=== PATIENT | female | born 1945 | race Caucasian/White ===

== ENCOUNTER 2016-09-05 11:58 | Emergency (ER) | payer MEDICARE, OTHER ==
[2016-09-05 12:57] VITALS: BP 119/68
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
[2016-09-05] MEDS ORDERED: Tetan/Diph/Pertus SYR(Tdap)* 0.5 ML SYR(BOOSTRIX) use SYR IM ONE (13:45)
== END 2016-09-05 14:00 | disposition home or self-care (01) ==
LOC: UCCORT 11:58
DX: J20.9 Acute bronchitis, unspecified (principal); J32.9 Chronic sinusitis, unspecified; W27.2XXA Contact with scissors, initial encounter; S61.032A Puncture wound without foreign body of left thumb without damage to nail, initial encounter; Y93.9 Activity, unspecified; Y92.9 Unspecified place or not applicable; Z23 Encounter for immunization; E78.5 Hyperlipidemia, unspecified; Z79.82 Long term (current) use of aspirin
CPT/HCPCS: 90471; 90715; 99212; G0463

== ENCOUNTER 2017-01-08 09:26 | Emergency (ER) | payer MEDICARE, OTHER ==
--- NOTE | 2017-01-08 09:47 | UC ---
Complaint Female HPI - HPI Summary HPI Summary: dysuria and frequency starting yesterday. - History Of Current Complaint Stated Complaint: URINARY Time Seen by Provider: 01/08/17 09:34 Hx Obtained From: Patient ?: No Onset/Duration: Gradual Onset, Lasting Hours Timing: Constant Severity Initially: Mild Severity Currently: Moderate Character: Burning Aggravating Factor(s): Urination Alleviating Factor(s): Nothing Associated Signs And Symptoms: Negative: Fever, Back Pain, Vaginal Bleeding/ Discharge, Vaginal Discharge, Nausea, Vomiting(# Of Episodes =), Genital Swelling, Genital Blisters - Allergies/Home Medications Allergies/Adverse Reactions: Allergies Allergy/AdvReac Type Severity Reaction Status Date / Time No Known Allergies Allergy Verified 09/05/16 12:57 PMH/Surg Hx/FS Hx/Imm Hx Previously Healthy: No - diverticulitis. last uti 3 years ago. Other History Of: Anticoagulant Therapy - Baby aspirin daily. Negative For: HIV, Hepatitis B, Hepatitis C - Surgical History Surgical History: Yes Surgery Procedure, Year, and Place: 2 c-sections, lap laila, left foot surgery - Family History Known Family History: Positive: Cardiac Disease, Hypertension - Social History Lives: With Family Alcohol Use: None Substance Use Type: None Smoking Status (MU): Never Smoked Tobacco Review of Systems Genitourinary: Dysuria, Frequency, Urgency All Other Systems Reviewed And Are Negative: Yes Physical Exam Triage Information Reviewed: Yes Appearance: Well-Appearing, No Pain Distress, Well-Nourished Vital Signs Reviewed: Yes Eye Exam: Normal ENT Exam: Normal Neck exam: Normal Respiratory Exam: Normal Cardiovascular Exam: Normal Abdominal Exam: Normal Abdomen Description: Positive: No Organomegaly, Soft. Negative: CVA Tenderness (R), CVA Tenderness (L), Distended, Guarding Musculoskeletal Exam: Normal Neurological Exam: Normal Psychological Exam: Normal Skin Exam: Normal Complaint Female Dx - Course Course Of Treatment: uti. she agrees to return for any worsening. - Differential Dx/Diagnosis Differential Diagnosis/HQI/PQRI: Cervicitis, Renal Colic, Retained Foreign Body Provider Diagnoses: uti Discharge - Discharge Plan Condition: Good Disposition: HOME Prescriptions: Nitrofurantoin Monohyd Macro [Macrobid] 100 mg PO BID #20 cap Phenazopyridine 200 mg (NF) [Pyridium 200 MG tab *] 200 mg PO TID #6 tab Patient Education Materials: Urinary Tract Infection in Women (ED) Referrals: Angelito COLLIER,Lien [Primary Care Provider] - If Needed
[2017-01-08 09:58] VITALS: BP 117/66
== END 2017-01-08 09:59 | disposition home or self-care (01) ==
LOC: UCCORT 09:26
DX: N39.0 Urinary tract infection, site not specified (principal)
CPT/HCPCS: 81003; 87077; 87086; 87186; 99212; G0463

== ENCOUNTER 2023-01-22 20:49 | Inpatient (IN) ==
[2023-01-22] MEDS ORDERED: Propofol 10 MG/ML 20 ML BTL IV PUSH ONE (21:29)
[2023-01-22] MEDS ORDERED: Ondansetron 4 mg VIAL 2 MG/ML 2 ml VIAL IV ONE (22:36)
[2023-01-22] MEDS ORDERED: Ondansetron 4 mg VIAL 2 MG/ML 2 ml VIAL IV PRN (23:08)
[2023-01-22] MEDS ORDERED: Fluticasone NASAL SPRAY 50MCG 16 gm SPRAY BTL INTRANASAL PRN (23:46)
[2023-01-22] MEDS ORDERED: Albuterol HFA INHALER 8 gm MDI INH PRN (23:46)
[2023-01-23 05:01] LABS: ABS Eosinophils 0.1 10^3/uL (0.0-0.5); ABS Lymphocytes 0.8 10^3/uL (1.0-4.8); ABS Monocytes 0.3 10^3/uL (0.0-0.9); ABS Neutrophils 4.8 10^3/uL (1.5-7.6); ABS Nucleated RBC 0.01 10^3/ul; Hematocrit 28.7 % (35-45); Hemoglobin 10.2 g/dL (11.5-14.3); Lymphocyte % 12.9 %; Mean Corpuscular Hemoglobin 32.1 pg (27-33); Mean Corpuscular Hgb Conc 35.6 g/dL (31-36); Mean Corpuscular Volume 90.3 fL (80-97); Mean Platelet Volume 6.8 fL (7.5-11.2); Nucleated Red Blood Cells % 0.2 /100 WBC (0.0-0.4); Platelet Count 312 10^3/uL (150-450); Red Blood Count 3.17 10^6/uL (3.63-4.92); Red Cell Distribution Width 13.6 % (12-17); White Blood Count 5.9 10^3/uL (3.8-11.8)
[2023-01-23 05:05] LABS: INR 1.18 (0.83-1.13)
[2023-01-23 05:10] LABS: Calcium 8.2 mg/dL (8.6-10.3); Potassium 3.8 mmol/L (3.5-5.0)
[2023-01-23 05:15] LABS: Creatinine, Serum 0.55 mg/dL (0.51-0.95); eGFR CKD-EPI 94.9 (>60)
[2023-01-23] MEDS ORDERED: Dexamethasone IV 4 MG/ML VIAL 1 ml VIAL ONE (08:07)
[2023-01-23] MEDS ORDERED: Glycopyrrolate IV 0.2 MG/ML 1 ML VIAL ONE (08:07)
[2023-01-23] MEDS ORDERED: Propofol 10 MG/ML 20 ML BTL ONE ×2 (08:07)
[2023-01-23] MEDS ORDERED: fentaNYL 100 mcg/2 ml 50 MCG/ML VIAL ONE ×2 (08:07)
[2023-01-23] MEDS ORDERED: Midazolam 2 mg/2 ml VIAL 1 mg/ml 2 ml VIAL (2 mg) ONE (08:07)
[2023-01-23] MEDS ORDERED: Ondansetron 4 mg VIAL 2 MG/ML 2 ml VIAL ONE (08:07)
[2023-01-23] MEDS ORDERED: HYDROmorphone 1 MG/1 ML SYRINGE IV PRN (09:33)
[2023-01-23] MEDS ORDERED: Ondansetron 4 mg VIAL 2 MG/ML 2 ml VIAL IV PRN (09:33)
[2023-01-23] MEDS ORDERED: Naloxone 0.4 mg VIAL 0.4 mg/ml 1 ml VIAL IV PRN (09:33)
[2023-01-23] MEDS: Cholecalciferol (VIT D3) 1,000 unit TAB PO SCH ×3 (10:44→21:43)
[2023-01-23] MEDS: Enoxaparin 40 MG/0.4 ML SYR SUBCUT SCH (17:44)
[2023-01-24 06:14] LABS: ABS Eosinophils 0.1 10^3/uL (0.0-0.5); ABS Lymphocytes 0.6 10^3/uL (1.0-4.8); ABS Monocytes 0.3 10^3/uL (0.0-0.9); ABS Neutrophils 4.1 10^3/uL (1.5-7.6); Eosinophil % 1.5 %; Hematocrit 23.3 % (35-45); Hemoglobin 8.2 g/dL (11.5-14.3); Lymphocyte % 11.2 %; Mean Corpuscular Hemoglobin 31.8 pg (27-33); Mean Corpuscular Hgb Conc 35.3 g/dL (31-36); Mean Platelet Volume 6.8 fL (7.5-11.2); Platelet Count 305 10^3/uL (150-450); Red Blood Count 2.59 10^6/uL (3.63-4.92); Red Cell Distribution Width 13.9 % (12-17); White Blood Count 5.1 10^3/uL (3.8-11.8)
[2023-01-24] MEDS: Cholecalciferol (VIT D3) 1,000 unit TAB PO SCH ×3 (08:25→21:15)
[2023-01-24] MEDS ORDERED: NS 0.9% 1000 ml BAG 1,000 ML IV SCH (13:30)
[2023-01-24 14:25] LABS: ABS Eosinophils 0.1 10^3/uL (0.0-0.5); ABS Lymphocytes 0.7 10^3/uL (1.0-4.8); ABS Monocytes 0.4 10^3/uL (0.0-0.9); ABS Neutrophils 4.6 10^3/uL (1.5-7.6); Hemoglobin 9.1 g/dL (11.5-14.3); Lymphocyte % 11.7 %; Mean Corpuscular Hemoglobin 31.9 pg (27-33); Mean Corpuscular Hgb Conc 35.2 g/dL (31-36); Mean Corpuscular Volume 90.7 fL (80-97); Mean Platelet Volume 7.1 fL (7.5-11.2); Nucleated Red Blood Cells % 0.1 /100 WBC (0.0-0.4); Platelet Count 365 10^3/uL (150-450); Red Blood Count 2.87 10^6/uL (3.63-4.92); Red Cell Distribution Width 13.9 % (12-17); White Blood Count 5.8 10^3/uL (3.8-11.8)
[2023-01-24] MEDS: Enoxaparin 40 MG/0.4 ML SYR SUBCUT SCH (17:43)
[2023-01-25] MEDS: fentaNYL 100 mcg/2 ml 50 MCG/ML VIAL IV SLOW PU PRN ×2 (01:55→09:05)
[2023-01-25 06:56] LABS: ABS Lymphocytes 0.7 10^3/uL (1.0-4.8); ABS Monocytes 0.4 10^3/uL (0.0-0.9); ABS Neutrophils 6.3 10^3/uL (1.5-7.6); Eosinophil % 0.5 %; Hematocrit 21.2 % (35-45); Hemoglobin 7.4 g/dL (11.5-14.3); Mean Corpuscular Hemoglobin 31.5 pg (27-33); Mean Corpuscular Hgb Conc 34.9 g/dL (31-36); Mean Corpuscular Volume 90.3 fL (80-97); Mean Platelet Volume 7.2 fL (7.5-11.2); Platelet Count 315 10^3/uL (150-450); Red Blood Count 2.35 10^6/uL (3.63-4.92); Red Cell Distribution Width 13.9 % (12-17); White Blood Count 7.4 10^3/uL (3.8-11.8)
[2023-01-25] MEDS: NS 0.9% 1000 ml BAG 1,000 ML IV SCH (10:02)
[2023-01-25] MEDS: Acetaminophen IV 1 GM/100ML 1,000 MG/100 ML BAG IV SCH ×2 (10:08→18:02)
[2023-01-25] MEDS: Cholecalciferol (VIT D3) 1,000 unit TAB PO SCH ×3 (10:11→21:30)
[2023-01-25 12:11] LABS: Hematocrit 21.3 % (35-45); Hemoglobin 7.4 g/dL (11.5-14.3)
[2023-01-25 12:23] LABS: Calcium 7.9 mg/dL (8.6-10.3); Potassium 3.7 mmol/L (3.5-5.0)
[2023-01-25 12:28] LABS: Creatinine, Serum 0.38 mg/dL (0.51-0.95); eGFR CKD-EPI 103.8 (>60)
[2023-01-25] MEDS ORDERED: Enoxaparin 40 MG/0.4 ML SYR SUBCUT SCH (16:00)
[2023-01-25] MEDS: Morphine 2 MG/ML SYRINGE IV PRN (19:00)
[2023-01-26] MEDS: NS 0.9% 1000 ml BAG 1,000 ML IV SCH ×2 (02:41→15:37)
[2023-01-26] MEDS: Morphine 2 MG/ML SYRINGE IV PRN ×3 (02:43→20:39)
[2023-01-26] MEDS: Acetaminophen IV 1 GM/100ML 1,000 MG/100 ML BAG IV SCH ×3 (03:02→18:43)
[2023-01-26 07:00] LABS: ABS Eosinophils 0.1 10^3/uL (0.0-0.5); ABS Lymphocytes 0.6 10^3/uL (1.0-4.8); ABS Monocytes 0.4 10^3/uL (0.0-0.9); ABS Neutrophils 4.4 10^3/uL (1.5-7.6); Eosinophil % 1.1 %; Hematocrit 19.6 % (35-45); Hemoglobin 6.9 g/dL (11.5-14.3); Lymphocyte % 10.3 %; Mean Corpuscular Hemoglobin 32.2 pg (27-33); Mean Corpuscular Hgb Conc 35.3 g/dL (31-36); Mean Corpuscular Volume 91.2 fL (80-97); Mean Platelet Volume 6.8 fL (7.5-11.2); Platelet Count 299 10^3/uL (150-450); Red Blood Count 2.15 10^6/uL (3.63-4.92); Red Cell Distribution Width 14.6 % (12-17); White Blood Count 5.5 10^3/uL (3.8-11.8)
[2023-01-26 07:19] LABS: Calcium 7.6 mg/dL (8.6-10.3); Creatinine, Serum 0.33 mg/dL (0.51-0.95); Potassium 3.6 mmol/L (3.5-5.0); eGFR CKD-EPI 107.4 (>60)
[2023-01-26] MEDS ORDERED: Iohexol 350 (CONTRAST) 500 ML MDV IV ONE (08:40)
[2023-01-26] MEDS: Cholecalciferol (VIT D3) 1,000 unit TAB PO SCH ×3 (09:09→20:41)
[2023-01-26 09:24] LABS: Magnesium 1.8 mg/dL (1.9-2.7)
[2023-01-26] MEDS ORDERED: Magnesium Sulfate 2 gm BAG 2 GM/50 ML BAG IVPB ONE (12:16)
[2023-01-26 12:35] LABS: High Sensitivity Troponin 1 Hr 12 pg/mL (<15)
[2023-01-26 15:23] LABS: Hematocrit 22.7 % (35-45); Hemoglobin 8.1 g/dL (11.5-14.3)
[2023-01-26] MEDS ORDERED: Enoxaparin 40 MG/0.4 ML SYR SUBCUT SCH (16:00)
[2023-01-27] MEDS: NS 0.9% 1000 ml BAG 1,000 ML IV SCH ×2 (01:52→21:51)
[2023-01-27] MEDS: Acetaminophen IV 1 GM/100ML 1,000 MG/100 ML BAG IV SCH ×4 (01:55→22:28)
[2023-01-27] MEDS: Morphine 2 MG/ML SYRINGE IV PRN ×2 (04:38→08:39)
[2023-01-27 07:11] LABS: ABS Eosinophils 0.1 10^3/uL (0.0-0.5); ABS Lymphocytes 0.7 10^3/uL (1.0-4.8); ABS Monocytes 0.4 10^3/uL (0.0-0.9); ABS Neutrophils 4.8 10^3/uL (1.5-7.6); ABS Nucleated RBC 0.01 10^3/ul; Hematocrit 22.5 % (35-45); Hemoglobin 8.1 g/dL (11.5-14.3); Lymphocyte % 12.1 %; Mean Corpuscular Hemoglobin 32.2 pg (27-33); Mean Corpuscular Volume 89.4 fL (80-97); Mean Platelet Volume 6.7 fL (7.5-11.2); Nucleated Red Blood Cells % 0.1 %/100WBC (0.0-0.8); Platelet Count 329 10^3/uL (150-450); Red Blood Count 2.52 10^6/uL (3.63-4.92); Red Cell Distribution Width 14.4 % (12-17); White Blood Count 6.1 10^3/uL (3.8-11.8)
[2023-01-27 07:46] LABS: Calcium 7.8 mg/dL (8.6-10.3); Creatinine, Serum 0.31 mg/dL (0.51-0.95); Potassium 3.6 mmol/L (3.5-5.0)
[2023-01-27] MEDS: Cholecalciferol (VIT D3) 1,000 unit TAB PO SCH ×3 (09:02→22:35)
[2023-01-27] MEDS ORDERED: NS 0.9% 500 ml BAG 500 ML IV ONE (10:31)
[2023-01-27] MEDS: KCL 20 MEQ/100 ML IVPREMIX 20 MEQ/100 ML BAG IV SCH ×2 (11:54→22:03)
[2023-01-27 12:31] LABS: Hematocrit 25.2 % (35-45); Hemoglobin 8.9 g/dL (11.5-14.3)
[2023-01-27] MEDS ORDERED: Lidocaine 2% PF 5 ML VIAL ONE (13:07)
[2023-01-27] MEDS ORDERED: Propofol 10 MG/ML 20 ML BTL ONE (13:07)
[2023-01-27] MEDS ORDERED: fentaNYL 250 mcg/5 ml 50 MCG/ML 5 ml VIAL (250 MCG) ONE (13:18)
[2023-01-27] MEDS ORDERED: Rocuronium 50 mg VIAL 10 mg/ml 5 ml VIAL (50 mg) ONE ×2 (13:21→17:04)
[2023-01-27] MEDS ORDERED: Clindamycin 900 MG/50 **NS BAG 900 MG/50 ML BAG ONE (13:37)
[2023-01-27] MEDS ORDERED: Esmolol 10 MG/ML 10 ML (100 mg) IV ONE ×2 (13:55→15:43)
[2023-01-27] MEDS ORDERED: ROPIVACAINE 5 MG/ML 30 ML BTL (0.5%) ONE (14:18)
[2023-01-27] MEDS ORDERED: Bupivacaine 0.5% SDV PF 30ML VIAL ONE (14:18)
[2023-01-27] MEDS ORDERED: Albumin Human 5% 12.5 GM/250 ML BTL IV ONE ×2 (14:28→16:51)
[2023-01-27] MEDS ORDERED: Tranexamic Acid 1,000 MG/10 ML SDV ONE (16:20)
[2023-01-27] MEDS ORDERED: Ondansetron 4 mg VIAL 2 MG/ML 2 ml VIAL ONE (17:26)
[2023-01-27] MEDS ORDERED: Acetaminophen IV 1 GM/100ML 1,000 MG/100 ML BAG IV ONE (18:07)
[2023-01-27] MEDS ORDERED: Dexamethasone IV 4 MG/ML VIAL 1 ml VIAL ONE (18:08)
[2023-01-27] MEDS ORDERED: Ondansetron 4 mg VIAL 2 MG/ML 2 ml VIAL IV PRN (18:38)
[2023-01-27] MEDS ORDERED: Naloxone 0.4 mg VIAL 0.4 mg/ml 1 ml VIAL IV PRN (18:38)
[2023-01-27] MEDS ORDERED: HYDROmorphone 1 MG/1 ML SYRINGE IV PRN (18:38)
[2023-01-27] MEDS ORDERED: fentaNYL 100 mcg/2 ml 50 MCG/ML VIAL IV PRN (18:38)
[2023-01-27 19:27] LABS: Hematocrit 25.8 % (35-45)
[2023-01-27] MEDS ORDERED: fentaNYL 100 mcg/2 ml 50 MCG/ML VIAL ONE (20:09)
[2023-01-28] MEDS: Morphine 2 MG/ML SYRINGE IV PRN (00:49)
[2023-01-28] MEDS: Clindamycin 600 MG/NS BAG IV SCH ×3 (02:08→15:58)
[2023-01-28 06:56] LABS: ABS Lymphocytes 0.5 10^3/uL (1.0-4.8); ABS Monocytes 0.5 10^3/uL (0.0-0.9); ABS Neutrophils 6.8 10^3/uL (1.5-7.6); ABS Nucleated RBC 0.01 10^3/ul; Hematocrit 25.7 % (35-45); Hemoglobin 8.9 g/dL (11.5-14.3); Lymphocyte % 6.7 %; Mean Corpuscular Hemoglobin 30.6 pg (27-33); Mean Corpuscular Hgb Conc 34.6 g/dL (31-36); Mean Corpuscular Volume 88.3 fL (80-97); Mean Platelet Volume 7.3 fL (7.5-11.2); Nucleated Red Blood Cells % 0.1 %/100WBC (0.0-0.8); Platelet Count 260 10^3/uL (150-450); Red Blood Count 2.91 10^6/uL (3.63-4.92); Red Cell Distribution Width 15.9 % (12-17); White Blood Count 7.8 10^3/uL (3.8-11.8)
[2023-01-28] MEDS: Acetaminophen IV 1 GM/100ML 1,000 MG/100 ML BAG IV SCH ×3 (07:00→21:45)
[2023-01-28 07:07] LABS: Calcium 7.5 mg/dL (8.6-10.3); Creatinine, Serum 0.36 mg/dL (0.51-0.95); Potassium 4.9 mmol/L (3.5-5.0); eGFR CKD-EPI 105.1 (>60)
[2023-01-28 07:46] LABS: Magnesium 1.8 mg/dL (1.9-2.7)
[2023-01-28] MEDS: Cholecalciferol (VIT D3) 1,000 unit TAB PO SCH ×3 (08:28→21:45)
[2023-01-28] MEDS ORDERED: Magnesium Sulfate 2 gm BAG 2 GM/50 ML BAG IVPB ONE (10:33)
[2023-01-28] MEDS: Magnesium Hydroxide LIQ 30 ML UDC PO SCH ×2 (11:18→21:45)
[2023-01-28] MEDS: Enoxaparin 40 MG/0.4 ML SYR SUBCUT SCH (11:19)
[2023-01-28 12:16] LABS: Hematocrit 22.5 % (35-45); Hemoglobin 7.9 g/dL (11.5-14.3)
[2023-01-28] MEDS ORDERED: NS 0.9% 500 ml BAG 500 ML IV ONE (14:01)
[2023-01-29 05:24] LABS: Urine Appearance Cloudy; Urine Bilirubin Negative (Negative); Urine Blood Negative (Negative); Urine Color Yellow; Urine Glucose Negative (Negative); Urine Ketones Negative (Negative); Urine Nitrite Negative (Negative); Urine Protein Negative (Negative); Urine Urobilinogen Negative (Negative)
[2023-01-29] MEDS: Acetaminophen IV 1 GM/100ML 1,000 MG/100 ML BAG IV SCH ×3 (06:41→22:32)
[2023-01-29] MEDS: Cholecalciferol (VIT D3) 1,000 unit TAB PO SCH ×4 (09:23→20:02)
[2023-01-29] MEDS: Magnesium Hydroxide LIQ 30 ML UDC PO SCH ×2 (09:24→19:58)
[2023-01-29] MEDS: Enoxaparin 40 MG/0.4 ML SYR SUBCUT SCH (11:42)
[2023-01-29 12:02] LABS: ABS Eosinophils 0.1 10^3/uL (0.0-0.5); ABS Lymphocytes 0.6 10^3/uL (1.0-4.8); ABS Monocytes 0.4 10^3/uL (0.0-0.9); ABS Neutrophils 4.3 10^3/uL (1.5-7.6); ABS Nucleated RBC 0.01 10^3/ul; Eosinophil % 1.5 %; Hematocrit 21.1 % (35-45); Hemoglobin 7.4 g/dL (11.5-14.3); Lymphocyte % 11.3 %; Mean Corpuscular Hemoglobin 30.5 pg (27-33); Mean Corpuscular Hgb Conc 35.2 g/dL (31-36); Mean Corpuscular Volume 86.5 fL (80-97); Mean Platelet Volume 6.7 fL (7.5-11.2); Nucleated Red Blood Cells % 0.2 %/100WBC (0.0-0.8); Platelet Count 263 10^3/uL (150-450); Red Blood Count 2.44 10^6/uL (3.63-4.92); Red Cell Distribution Width 16.3 % (12-17); White Blood Count 5.5 10^3/uL (3.8-11.8)
[2023-01-29 12:13] LABS: Anion Gap 9 mmol/L (2-16); CO2 Carbon Dioxide 24 mmol/L (22-32); Calcium 7.7 mg/dL (8.6-10.3); Chloride 104 mmol/L (101-111); Magnesium 1.7 mg/dL (1.9-2.7); Potassium 4.2 mmol/L (3.5-5.0); Sodium 137 mmol/L (135-145)
[2023-01-29 12:40] LABS: Blood Urea Nitrogen 9 mg/dL (6-24); Creatinine, Serum < 0.30 mg/dL (0.51-0.95); Glucose 95 mg/dL (70-100); eGFR CKD-EPI 109.9 (>60)
[2023-01-29] MEDS ORDERED: Magnesium Sulfate IV 3 GM in NS 0.9% 100 ml BAG 100 ML IVPB ONE (14:20)
[2023-01-30] MEDS: Acetaminophen IV 1 GM/100ML 1,000 MG/100 ML BAG IV SCH ×2 (06:43→14:46)
[2023-01-30 07:09] LABS: ABS Eosinophils 0.1 10^3/uL (0.0-0.5); ABS Lymphocytes 0.6 10^3/uL (1.0-4.8); ABS Monocytes 0.4 10^3/uL (0.0-0.9); ABS Neutrophils 3.5 10^3/uL (1.5-7.6); ABS Nucleated RBC 0.01 10^3/ul; Eosinophil % 2.6 %; Hematocrit 20.9 % (35-45); Hemoglobin 7.3 g/dL (11.5-14.3); Lymphocyte % 12.4 %; Mean Corpuscular Hemoglobin 30.8 pg (27-33); Mean Corpuscular Hgb Conc 35.2 g/dL (31-36); Mean Corpuscular Volume 87.7 fL (80-97); Mean Platelet Volume 7.1 fL (7.5-11.2); Nucleated Red Blood Cells % 0.2 %/100WBC (0.0-0.8); Platelet Count 259 10^3/uL (150-450); Red Blood Count 2.38 10^6/uL (3.63-4.92); Red Cell Distribution Width 16.1 % (12-17); White Blood Count 4.7 10^3/uL (3.8-11.8)
[2023-01-30 07:18] LABS: Anion Gap 8 mmol/L (2-16); Blood Urea Nitrogen 6 mg/dL (6-24); CO2 Carbon Dioxide 26 mmol/L (22-32); Calcium 7.7 mg/dL (8.6-10.3); Chloride 106 mmol/L (101-111); Creatinine, Serum < 0.30 mg/dL (0.51-0.95); Glucose 86 mg/dL (70-100); Magnesium 1.9 mg/dL (1.9-2.7); Potassium 3.7 mmol/L (3.5-5.0); Sodium 140 mmol/L (135-145); eGFR CKD-EPI 109.9 (>60)
[2023-01-30] MEDS: Magnesium Hydroxide LIQ 30 ML UDC PO SCH ×2 (11:02→22:27)
[2023-01-30] MEDS: Cholecalciferol (VIT D3) 1,000 unit TAB PO SCH ×3 (11:09→21:15)
[2023-01-30] MEDS: Enoxaparin 40 MG/0.4 ML SYR SUBCUT SCH (11:09)
[2023-01-31] MEDS: Cholecalciferol (VIT D3) 1,000 unit TAB PO SCH (09:12)
[2023-01-31 09:13] LABS: ABS Eosinophils 0.2 10^3/uL (0.0-0.5); ABS Lymphocytes 0.5 10^3/uL (1.0-4.8); ABS Monocytes 0.4 10^3/uL (0.0-0.9); ABS Neutrophils 3.4 10^3/uL (1.5-7.6); Eosinophil % 3.4 %; Hemoglobin 8.1 g/dL (11.5-14.3); Lymphocyte % 12.3 %; Mean Corpuscular Hemoglobin 31.3 pg (27-33); Mean Corpuscular Hgb Conc 35.2 g/dL (31-36); Mean Corpuscular Volume 88.9 fL (80-97); Mean Platelet Volume 6.9 fL (7.5-11.2); Platelet Count 322 10^3/uL (150-450); Red Blood Count 2.58 10^6/uL (3.63-4.92); Red Cell Distribution Width 16.5 % (12-17); White Blood Count 4.5 10^3/uL (3.8-11.8)
[2023-01-31 09:51] VITALS: BP 126/75
[2023-01-31 09:56] LABS: Rapid COVID-19 Molecular Undetected (Undetected)
[2023-01-31] MEDS: Magnesium Hydroxide LIQ 30 ML UDC PO SCH (10:26)
== END 2023-01-31 11:50 | DRG 467 ==
LOC: ED 20:49 → INTOOBSV 23:09 → EDHOLD 23:09 → SUATTDRO 23:09 → EDHOLD 01-23 07:58 → AA 01-23 08:12 → SSU 01-23 10:26 → SUATTDRO 01-24 13:36 → SSU 01-25 17:57
PROVIDERS: ADMIT Student in an Organized Health Care Education/Training Program; ATTEND Internal Medicine